=== PATIENT | male | born 1985 | race Caucasian/White ===

== ENCOUNTER 2025-01-27 19:28 | Emergency (ER) | payer MEDICAID, SELFPAY ==
[2025-01-27 19:47] VITALS: PULSE 112; O2SAT 96
[2025-01-27 19:58] VITALS: BP 168/98; PULSE 98; RESP 20; TEMP 36.6; O2SAT 95; BMI 24.4
--- NOTE | 2025-01-27 21:19 | ED.PSYCH ---
HPI - Psych General Chief Complaint: Psychiatric Symptoms Stated Complaint: SI Time Seen by Provider: 01/27/25 20:31 Source: patient, EMS and police Mode of arrival: EMS Limitations: no limitations History of Present Illness ED Provider: Dr. Melyssa Bautista HPI Narrative: Patient comes to the emergency room via EMS, police department reported that patient got called by the patient for suicide ideation. When patient arrived here in the emergency room, patient is hyperverbal, complaining about his mind being fucked up . patient talking in circles, not making much sense. Avoiding eye contact. According to EMS patient has a history of substance abuse. We are not getting any information from the patient other than he does have psychiatric conditions and he is not doing well Related Data Home Medications ?Medication ?Instructions ?Recorded ?Confirmed fluoxetine 20 mg capsule 20 mg PO DAILY depressive disorder 01/28/25 01/28/25 olanzapine 15 mg tablet 15 mg PO BEDTIME blood pressure 01/28/25 01/28/25 Allergies Allergy/AdvReac Type Severity Reaction Status Date / Time No Known Allergies (No Known Allergy Verified 01/27/25 20:01 Allergies*) Review of Systems Review of Systems: Yes Other ( hyperverbal, unable to engage in a normal conversation) [facility] Social History Social History Advance Directives: No Advance Directives Information Provided: No Physical Exam Vital Signs: Vital Signs: Last Vital Signs Temp 98.4 F 01/27/25 22:46 Pulse 68 01/27/25 22:46 Resp 16 01/28/25 06:03 BP 126/78 01/27/25 22:46 Pulse Ox 96 01/27/25 22:46 O2 Del Method Room Air 01/27/25 22:46 BMI result Body Mass Index 24.4 Const: Other: Appearance: Alert. belligerent difficult to redirect, hyperverbal Eyes: Pupils equal, round and reactive to light. ENT: Pharynx normal. Neck: Normal inspection. Neck supple. No lymph nodes noted. No crepitus CVS: Normal heart rate and rhythm. Pulses normal. Normal S1 and S2 Respiratory: No respiratory distress. Breath sounds normal. No Wheezing. No rales Abdomen: Soft and nontender. No rigidity. No distention. Skin: Skin warm and dry. Normal skin color. Normal skin turgor. Extremities: No lower extremity edema. No Lacerations. No Rash Neuro: Oriented X 3. No motor deficit. No sensory deficit. Moving all extremities. No slurred speech. CN 2 through 12 grossly intact Psych: hyperverbal, belligerent, difficult to redirect, argumentative Course Course Course Narrative: PT is hypervebal, belligerent, not following directions. Pt was given IM medications, pt was agreeable all of patient's labs pending, pt on a section 12, care team consult Reevaluation(s) Reevaluation #1: Time: 09:38 Date: 01/28/25 Provider: Roseanna Yu, DO Patient in physician observation for psychiatric evaluation.? No acute events reported overnight did well after IM meds. No current complaints. VS stable.? Patient is pending CARE team evaluation. Will continue to monitor. Reevaluation #2: patient is clear not hyperverbal he denies SI he can be DC at this time not delusional and no SI now. Time: 10:29 Date: 01/28/25 Provider: Roseanna Yu DO Physician observation ended at 1029am. Patient has been cleared for discharge by the CARE team. Will follow up as an outpatient. Medications Administered Discontinued Medications Generic Name Dose Route Start Last Admin Trade Name Freq PRN Reason Stop Dose Admin Diazepam 5 mg 01/27/25 21:15 01/27/25 21:36 Diazepam 10 Mg/2 Ml Cartridge IM 01/27/25 21:16 5 mg STAT STA Administration Diphenhydramine HCl 50 mg 01/27/25 21:14 01/27/25 21:36 Diphenhydramine Hcl 50 Mg/Ml Vial IM 01/27/25 21:15 50 mg ONCE ONE Administration Haloperidol Lactate 5 mg 01/27/25 21:15 01/27/25 21:36 Haloperidol Lactate 5 Mg/Ml Vial IM 01/27/25 21:16 5 mg STAT STA Administration Lorazepam 2 mg 01/28/25 10:14 01/28/25 10:21 Lorazepam 1 Mg Tablet PO 01/28/25 10:15 2 mg ONCE ONE Administration Medical Decision Making Differential Diagnosis Differential Diagnoses: The differential diagnosis associated with the presentation includes (polysubstance abuse, schizophrenia, bipolar disorder) Admission/Observation Consideration of admission/observation: Escalation of care including admission/observation considered ( patient will need to be chemically restrained. Care team consult pending, patient is under physician observation) Critical Care Time Critical Care Time Total Critical Care Time: 45 Attestation: I have personally provided critical care time. Time includes review of lab data, radiology results, discussion with consultants, and monitoring for potential decompensation. Intervention performed as documented. 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 It is important after your visit that you follow up with either your behavioral health provider or a primary care doctor within 7 days.? If you have trouble finding a therapist you can reach out to [address] [phone] The National Suicide and Crisis [employer] can be reached 7 days a week 24 hours a day.? Call 988 to speak with someone.? Return for any worsening symptoms or concerns such as thoughts of self harm or harm to others. Please call 911 if you feel your mental health is worsening.? Prescriptions: No Action olanzapine 15 mg tablet 15 mg PO BEDTIME fluoxetine 20 mg capsule 20 mg PO DAILY Interventions: [place]-Suicide Risk Severity Scale Last Done: 01/27/25 22:48 Print Language: Georgian
[2025-01-27] MEDS: diphenhydrAMINE HCL 50 MG/ML VIAL IM (21:36)
[2025-01-27] MEDS: diazePAM 10 MG/2 ML CARTRIDGE 5 MG IM (21:36)
[2025-01-27] MEDS: Haloperidol Lactate 5 MG/ML VIAL IM (21:36)
--- NOTE | 2025-01-27 21:44 | MHC.EDTECH ---
pt medicated upon arrival to the pod due to severe agitation. LABS AND UA SAMPLE DELAYED DUE TO MEDICATION ADMINISTRATION. PT REFUSING LABS/STATES HE DOES NOT NEED TO PEE FOR YOU TIM MERLOS. RN AWARE
[2025-01-27 22:46] VITALS: BP 126/78; PULSE 68; RESP 16; TEMP 36.9; O2SAT 96
--- NOTE | 2025-01-28 04:31 | PC.NURSE ---
late entry: when t/w approached client after client had asked if po medications were an option and provider had requested advancing with IM delivery, client had asserted that he did not desire the medication. t/w had approached client speaking with majority of body behind doorway and client stated to t/w stick it my fucking shorty seemingly not as a literal request but an attempt to provoke staff. Security personnel did an excellent job in attempting to keep the client calm and safe during the delivery of medications which was soon thereafter effective in modifying clients mood.
[2025-01-28 06:03] VITALS: RESP 16
--- NOTE | 2025-01-28 10:13 | MHC.EDTECH ---
Patient refusing vitals, labs and urine at this time. RN aware.
[2025-01-28] MEDS: LORazepam 1 MG TABLET 2 MG PO (10:21)
--- NOTE | 2025-01-28 10:23 | PC.NURSE ---
patient was abruptly woken up by care team. patient now seemingly agitated/restless/pacing throughout the room. patient refusing vitals to be obtained by tech. still unable to obtain lab work/urine at this time. provider notified/aware of patient's presentation. medication administered per provider order. effectiveness pending. plan of care ongoing.
--- NOTE | 2025-01-28 10:30 | HO.SUDE ---
Pt does not meet the criteria for a higher level of care and will be discharged. ED provider in agreement.
--- NOTE | 2025-01-28 10:34 | PC.NURSE ---
pt agreeable to taking medication - medication administered via PO w/o difficulty.
--- NOTE | 2025-01-28 10:42 | PC.NURSE ---
patient seen by care team/MD. patient now up for discharge. patient verbalizing that he does not want to leave at this time until he is more calm. patient provided w/ gingerale and snack per request. will discharge patient when able.
--- NOTE | 2025-01-28 11:27 | MHC.CARE ---
Of note and in response to nursing note, Pt was not abruptly woken up by CARE team. Pt was not awakened until 10am and T/W checked in on Pt to complete assessment and determine Pt's most appropriate D/C plan. Pt was agitated and asked for one min to wake up. T/W stated Pt could have 15 min to which he stated I don't need that. T/W returned to assess Pt and Pt was agitated, irritable, and verbally aggressive. Pt was pacing room and T/W was not comfortable with the level of safety at that time. Pt declined to engage in assessment, was highly agitated, denied any SI at this time and requested D/C. T/W left the room to facilitate D/C with ED provider and Pt began yelling down the mckeon that T/W was unprofessional. Pt was advised he declined to answer the questions for an assessment and T/W was facilitating a D/C per his request. Pt has been agitated, verbally aggressive, and disrespectful since arrival and required IM medication when admitting to ED.
== END 2025-01-28 12:17 | disposition home or self-care (01) ==
PROVIDERS: Emergency Provider Emergency Medicine
DX: F19.159 Other psychoactive substance abuse with psychoactive substance-induced psychotic disorder, unspecified (principal); R45.851 Suicidal ideations; Z79.899 Other long term (current) drug therapy
CPT/HCPCS: 96372; 99284; J1200; J1630; J3360; S9485